=== PATIENT | male | born 1980 | race Caucasian/White ===

== ENCOUNTER 2016-05-03 08:01 | Emergency (ER) | payer SELFPAY ==
[2016-05-03] MEDS ORDERED: HYDROcodone/Acetaminophen 5/325 mg Tablet ONE (09:12)
[2016-05-03 09:23] LABS: Bilirubin Negative (Negative); Blood, Urine Negative (Negative); Clarity Clear (Clear); Glucose, Urine (Dipstick) Negative (Negative); Leukocyte Trace (Negative); Nitrite Negative (Negative); Protein, Urine (Dipstick) Negative (Neg-Trace); Specific Gravity, Urine 1.015 (1.005-1.030); Urobilinogen 0.2 mg/dL (0.2-1.0)
[2016-05-03 09:27] LABS: Bacteria/HPF Rare-Few HPF (None Seen); RBC/HPF 0-3 HPF (0-3)
== END 2016-05-03 09:53 | disposition left against medical advice (07) ==
LOC: MADERS 08:01
DX: N50.89 Other specified disorders of the male genital organs (principal); F17.210 Nicotine dependence, cigarettes, uncomplicated
CPT/HCPCS: 81003; 81015; 87086; 99284

== ENCOUNTER 2016-05-04 11:54 | Emergency (ER) | payer SELFPAY ==
[~2016-05-04 11:54] MED LIST: Lidocaine 1% 20 ML MDV ONE
[2016-05-04] MEDS ORDERED: Azithromycin 250 MG TAB ONE (14:24)
[2016-05-04] MEDS ORDERED: cefTRIAXone\\ROCEPHIN 250 MG VIAL ONE (14:24)
--- NOTE | 2016-05-04 14:31 | ULT ---
SCROTAL ULTRASOUND INCLUDING VASCULAR DUPLEX WITH SPECTRAL DOPPLER IMAGING: Date: 05/04/16 HISTORY: 35-year-old male with right scrotal pain and enlargement for 2-3 weeks. FINDINGS: Right testis measures 4.0 x 2.6 x 2.7 cm. Left testis measures 3.0 x 2.9 x 3.5 cm. The left epididym al head region is slightly more prominent than the right. There is an approximately 1.5 x 1.5 x 2.6 cm diameter heterogeneous hypoechoic mass adjacent to the medial aspect of the right testis, probabl y an enlarged epididymis with some increased blood flow. No evidence for abnormal hydrocele. No intr atesticular mass. IMPRESSION: Mixed echogenic, mostly hypoechoic, solid mass adjacent to the right testis with some minimal increa sed blood flow, evidence for acute epididymitis. No evidence for intratesticular mass or testicular torsion. No hydrocele. POS: [facility]
== END 2016-05-04 14:41 | disposition home or self-care (01) ==
LOC: MADERS 11:54
DX: N45.1 Epididymitis (principal); F17.210 Nicotine dependence, cigarettes, uncomplicated
CPT/HCPCS: 76870; 93976; 96372; J0696; J2001

== ENCOUNTER 2016-09-07 09:12 | Emergency (ER) | payer SELFPAY | END 2016-09-07 09:35 | disposition home or self-care (01) | LOC: MADERS 09:12 | DX: J02.9 Acute pharyngitis, unspecified (principal); F17.210 Nicotine dependence, cigarettes, uncomplicated | CPT/HCPCS: 99282 ==

== ENCOUNTER 2016-12-06 11:47 | Emergency (ER) | payer SELFPAY ==
[2016-12-06] MEDS ORDERED: Ibuprofen 800 MG TAB ONE (13:16)
[2016-12-06] MEDS ORDERED: HYDROcodone/Acetaminophen 5/325 mg Tablet ONE (13:16)
== END 2016-12-06 13:50 | disposition home or self-care (01) ==
LOC: MADERS 11:47
DX: S00.531A Contusion of lip, initial encounter (principal); F17.210 Nicotine dependence, cigarettes, uncomplicated; V89.2XXA Person injured in unspecified motor-vehicle accident, traffic, initial encounter; W22.10XA Striking against or struck by unspecified automobile airbag, initial encounter
CPT/HCPCS: 99283

== ENCOUNTER 2017-01-06 19:32 | Emergency (ER) | payer SELFPAY ==
[2017-01-06] MEDS ORDERED: Benzonatate 100 MG CAP ONE (20:14)
[2017-01-06] MEDS ORDERED: Azithromycin 250 MG TAB ONE (20:14)
== END 2017-01-06 20:26 | disposition home or self-care (01) ==
LOC: MADERS 19:32
DX: J20.9 Acute bronchitis, unspecified (principal); F17.210 Nicotine dependence, cigarettes, uncomplicated
CPT/HCPCS: 99283

== ENCOUNTER 2017-04-23 18:16 | Emergency (ER) | payer SELFPAY ==
[2017-04-23] MEDS ORDERED: Benzonatate 100 MG CAP ONE (19:42)
[2017-04-23] MEDS ORDERED: AMOXicillin 250 MG CAP ONE (19:42)
== END 2017-04-23 19:46 | disposition home or self-care (01) ==
LOC: MADERS 18:16
DX: J02.9 Acute pharyngitis, unspecified (principal); F17.210 Nicotine dependence, cigarettes, uncomplicated
CPT/HCPCS: 87804; 99283

== ENCOUNTER 2017-07-12 18:21 | Emergency (ER) | payer SELFPAY | END 2017-07-12 19:50 | disposition home or self-care (01) | LOC: MADERS 18:21 | DX: K02.9 Dental caries, unspecified (principal); F17.210 Nicotine dependence, cigarettes, uncomplicated | CPT/HCPCS: 99283 ==

== ENCOUNTER 2017-08-24 21:34 | Emergency (ER) | payer SELFPAY ==
[2017-08-24] MEDS ORDERED: AMOXicillin 250 MG CAP ONE (21:48)
[2017-08-24] MEDS ORDERED: Naproxen 500 MG TAB ONE (21:48)
== END 2017-08-24 21:56 | disposition home or self-care (01) ==
LOC: MADERS 21:34
DX: K02.9 Dental caries, unspecified (principal); F17.210 Nicotine dependence, cigarettes, uncomplicated
CPT/HCPCS: 99282

== ENCOUNTER 2018-02-16 12:53 | Emergency (ER) | payer SELFPAY | END 2018-02-16 13:38 | disposition home or self-care (01) | LOC: MADERS 12:53 | DX: J06.9 Acute upper respiratory infection, unspecified (principal); F17.210 Nicotine dependence, cigarettes, uncomplicated | CPT/HCPCS: 99283 ==

== ENCOUNTER 2018-05-25 15:00 | Emergency (ER) | payer SELFPAY | END 2018-05-25 15:44 | disposition home or self-care (01) | LOC: MADERS 15:00 | DX: L60.0 Ingrowing nail (principal); L03.031 Cellulitis of right toe; I10 Essential (primary) hypertension; F17.210 Nicotine dependence, cigarettes, uncomplicated | CPT/HCPCS: 99283 ==

== ENCOUNTER 2019-12-04 09:43 | Emergency (ER) | payer SELFPAY | END 2019-12-04 10:42 | disposition left against medical advice (07) | LOC: MADERS 09:43 | DX: R11.2 Nausea with vomiting, unspecified (principal); R00.0 Tachycardia, unspecified; R05 Cough; R19.7 Diarrhea, unspecified; R53.81 Other malaise; F17.210 Nicotine dependence, cigarettes, uncomplicated | CPT/HCPCS: 99284 ==

== ENCOUNTER 2020-04-08 18:20 | Emergency (ER) | payer SELFPAY | END 2020-04-08 18:58 | disposition home or self-care (01) | LOC: MADERS 18:20 | DX: K08.89 Other specified disorders of teeth and supporting structures (principal); R59.0 Localized enlarged lymph nodes; I10 Essential (primary) hypertension; F17.210 Nicotine dependence, cigarettes, uncomplicated; Z79.899 Other long term (current) drug therapy | CPT/HCPCS: 99282 ==

== ENCOUNTER 2020-05-20 21:42 | Emergency (ER) | payer OTHER, SELFPAY ==
[2020-05-21 16:47] LABS: SARS-CoV-2 PCR by NAA Not Detected (NotDetected)
== END 2020-05-20 22:28 | disposition home or self-care (01) ==
LOC: MADERS 21:42
DX: Z20.822 Contact with and (suspected) exposure to COVID-19 (principal); F17.210 Nicotine dependence, cigarettes, uncomplicated; I10 Essential (primary) hypertension; Z79.899 Other long term (current) drug therapy
CPT/HCPCS: 87635; 99283; U0003; U0005

== ENCOUNTER 2023-04-01 01:59 | Emergency (ER) | payer OTHER, SELFPAY ==
[2023-04-01] MEDS ORDERED: Lidocaine 1% PF 5 ML VIAL ONE (02:29)
[2023-04-01] MEDS ORDERED: Sulfameth/Trimethoprim DS 800-160mg TAB ONE (02:59)
[2023-04-01] MEDS ORDERED: traMADol HCl 50 MG TAB ONE (02:59)
== END 2023-04-01 03:04 | disposition home or self-care (01) ==
LOC: MADERS 01:59
DX: L02.31 Cutaneous abscess of buttock (principal); E03.0 Congenital hypothyroidism with diffuse goiter; H10.9 Unspecified conjunctivitis; R00.0 Tachycardia, unspecified; F17.210 Nicotine dependence, cigarettes, uncomplicated; I10 Essential (primary) hypertension
CPT/HCPCS: 11000; 87070; 87077; 87186; 87205

== ENCOUNTER 2023-07-14 00:12 | Emergency (ER) | payer OTHER ==
[2023-07-14] MEDS ORDERED: Dexamethasone 10 MG/ML VIAL ONE (00:28)
[2023-07-14] MEDS ORDERED: methylPREDNISolone Acetate 80 mg (1 mL) VIAL ONE (10:09)
== END 2023-07-14 00:48 | disposition home or self-care (01) ==
LOC: MADERS 00:12
DX: L23.7 Allergic contact dermatitis due to plants, except food (principal); I10 Essential (primary) hypertension; F17.210 Nicotine dependence, cigarettes, uncomplicated
CPT/HCPCS: 96372; 99282; J1040; J1100